=== PATIENT | female | born 1985 | race Caucasian/White ===

== ENCOUNTER 2019-02-26 18:37 | Emergency (ER) | payer OTHER ==
[2019-02-26 18:40] VITALS: RESP 18; TEMP 98.2; O2SAT 100; BMI 37.5
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
[2019-02-26 20:50] VITALS: BP 134/61; PULSE 73
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
== END 2019-02-26 21:05 | disposition home or self-care (01) ==
LOC: ED 18:37
DX: R51 Headache (principal); M54.2 Cervicalgia; R42 Dizziness and giddiness; M25.531 Pain in right wrist; V89.2XXA Person injured in unspecified motor-vehicle accident, traffic, initial encounter; Y92.410 Unspecified street and highway as the place of occurrence of the external cause